=== PATIENT | male | born 1990 | race Caucasian/White ===

== ENCOUNTER 2017-03-11 15:59 | Emergency (ER) | payer OTHER ==
[2017-03-11 16:34] LABS: BASOPHILS # (AUTO) 0.1 10^3/uL (0.0-0.1); BASOPHILS % (AUTO) 0.6 %; EOSINOPHILS % (AUTO) 0.4 %; HCT - HEMATOCRIT 46.5 % (42.0-52.0); HGB - HEMOGLOBIN 16.3 g/dL (14.0-18.0); LYMPHOCYTES # (AUTO) 0.8 10^3/uL (1.5-3.5); LYMPHOCYTES % (AUTO) 7.8 %; MEAN CORPUSCULAR HGB CONC 35.1 g/dL (32.0-36.0); MEAN CORPUSCULAR VOLUME 82.8 fL (80.0-94.0); MEAN PLATELET VOLUME 7.8 fL (7.4-11.4); MONOCYTES # (AUTO) 0.9 10^3/uL (0.0-1.0); MONOCYTES % (AUTO) 8.4 %; NEUTROPHILS # (AUTO) 8.8 10^3/uL (1.5-6.6); NEUTROPHILS % (AUTO) 82.8 %; RED BLOOD COUNT 5.61 10^6/uL (4.70-6.10); RED CELL DISTRIBUTION WIDTH 12.8 % (12.0-15.0); UNCORRECTED WHITE BLOOD COUNT 10.7 x10^3/uL; WHITE BLOOD COUNT 10.7 x10^3/uL (4.8-10.8)
[2017-03-11 16:43] LABS: ALBUMIN/GLOBULIN RATIO 1.5 (1.0-2.2); BILIRUBIN,TOTAL 1.2 mg/dL (0.2-1.0); CALCIUM 9.3 mg/dL (8.5-10.3); POTASSIUM 4.2 mmol/L (3.5-5.0); TOTAL PROTEIN 7.4 g/dL (6.7-8.2)
[2017-03-11] MEDS ORDERED: SODIUM CHLORIDE 0.9% 1,000 ML IV ONE (17:26)
[2017-03-11] MEDS ORDERED: KETOROLAC 60 MG/2 ML VIAL IVP STA (17:26)
[2017-03-11] MEDS ORDERED: ONDANSETRON 4 MG/2 ML VIAL IVP STA (17:26)
--- NOTE | 2017-03-11 17:27 | ED Physician Documentation ---
PD HPI ABD PAIN - Stated complaint Stated Complaint: N/V/D/F/BACK PX - Chief complaint Chief Complaint: Abd Pain - History obtained from History obtained from: Patient - History of Present Illness Timing - onset: Other (He has had 4 weeks of back pain after lifting, but today became chilled, started vomiting and he had diarrhea last night with some diffuse abdominal cramping as well. No sick contacts or recent travel.) Review of Systems Constitutional: reports: Fever, Chills, Myalgias, Fatigue Nose: denies: Rhinorrhea / runny nose, Congestion Cardiac: denies: Chest pain / pressure, Palpitations Respiratory: denies: Dyspnea, Cough GI: reports: Abdominal Pain, Nausea, Vomiting, Diarrhea : denies: Dysuria, Frequency PD PAST MEDICAL HISTORY - Past Medical History Past Medical History: No - Past Surgical History Past Surgical History: No - Present Medications Home Medications: Ambulatory Orders Medication Instructions Recorded Confirmed Cyclobenzaprine [Flexeril] 10 mg PO TID PRN #20 tablet 03/11/17 Ondansetron HCl [Zofran] 4 mg PO Q6H PRN #10 tablet 03/11/17 - Allergies Allergies/Adverse Reactions: Allergies Allergy/AdvReac Type Severity Reaction Status Date / Time amoxicillin Allergy Hives Verified 03/11/17 16:07 - Social History Does the pt smoke?: No Smoking Status: Never smoker Does the pt drink ETOH?: Yes Does the pt have substance abuse?: No - Family History Family history: reports: Non contributory - Immunizations Immunizations are current?: Yes - POLST Patient has POLST: No PD ED PE NORMAL - Vitals Vital signs reviewed: Yes - General General: Alert and oriented X 3, No acute distress - HEENT HEENT: PERRL, EOMI - Neck Neck: Supple, no meningeal sign, No bony TTP - Cardiac Cardiac: RRR, No murmur - Respiratory Respiratory: No respiratory distress, Clear bilaterally - Abdomen Abdomen: Normal bowel sounds, Soft, Non tender - Back Back: Other (He has some paralumbar muscular tenderness of the lumbar spine without midline tenderness.) - Derm Derm: Normal color, Warm and dry - Extremities Extremities: No edema, No calf tenderness / cord, Other (The patient has equal and normal Achilles and patellar reflexes bilaterally. Normal sensation in all areas of the legs. Patient denies saddle anesthesia. Normal strength in flexion-extension at the ankles, knees, and flexion of the hips.) - Neuro Neuro: Alert and oriented X 3, Normal speech - Psych Psych: Normal mood, Normal affect Results - Vitals Vitals: Vital Signs - 24 hr 03/11/17 16:04 Temperature 38 C H Heart Rate 114 H Respiratory 20 Rate Blood Pressure 149/86 H O2 Saturation 97 Oxygen O2 Source Room air - Labs Labs: Laboratory Tests 03/11/17 03/11/17 16:26 16:26 WBC 10.7 RBC 5.61 Hgb 16.3 Hct 46.5 MCV 82.8 MCH 29.0 MCHC 35.1 RDW 12.8 Plt Count 220 MPV 7.8 Neut # 8.8 H Lymph # 0.8 L [place] # 0.9 Eos # 0.0 Baso # 0.1 Absolute Nucleated RBC 0.00 Nucleated RBC % 0.0 Sodium 136 Potassium 4.2 Chloride 106 Carbon Dioxide 23 Anion Gap 7.0 BUN 15 Creatinine 1.0 Estimated GFR (MDRD) 91 Glucose 106 H Calcium 9.3 Total Bilirubin 1.2 H AST 28 ALT 47 Alkaline Phosphatase 74 Total Protein 7.4 Albumin 4.4 Globulin 3.0 Albumin/Globulin Ratio 1.5 Lipase 31 PD MEDICAL DECISION MAKING - ED course ED course: He has 2 seemingly unrelated issues, 4 weeks of back pain after lifting which seems uncomplicated without red flags but he does have a fever now, low-grade with what seems like a gastroenteritis but no tenderness. He was administered IV fluids, Toradol, Zofran with good relief of his back pain but it still felt stiff and his nausea and abdominal pain were gone. On repeat examination at 6: 25 PM he was completely nontender but he was given appendicitis precautions given the low-grade fever. Departure - Departure Disposition: 01 Home, Self Care Clinical Impression: Back sprain Abdominal pain Qualifiers: Abdominal location: generalized Qualified Code(s): R10.84 - Generalized abdominal pain Vomiting Qualifiers: Vomiting type: unspecified Vomiting Intractability: non-intractable Nausea presence: with nausea Qualified Code(s): R11.2 - Nausea with vomiting, unspecified Diarrhea Qualifiers: Diarrhea type: unspecified type Qualified Code(s): R19.7 - Diarrhea, unspecified Condition: Good Record reviewed to determine appropriate education?: Yes Instructions: Abdominal Pain, ED Low Back Pain Injury Prescriptions: Cyclobenzaprine [Flexeril] 10 mg PO TID PRN #20 tablet PRN Reason: Pain Ondansetron HCl [Zofran] 4 mg PO Q6H PRN #10 tablet PRN Reason: Nausea / Vomiting Comments: With regard to your abdominal symptoms, vomiting and abdominal pain and fevers, return in 12 hours if not better, anytime if worse. 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 Your blood pressure was elevated today on check into the emergency department. This does not mean that you have hypertension, it is a common phenomenon to come to the emergency department and have elevated blood pressure. I recommend that she see your primary care physician within the week to have it rechecked when you are feeling better.
[2017-03-11] MEDS ORDERED: KETOROLAC 30 MG/ML VIAL ONE (17:37)
[2017-03-11] MEDS ORDERED: ONDANSETRON 4 MG/2 ML VIAL ONE (17:37)
[2017-03-11] MEDS ORDERED: SODIUM CHLORIDE FLUSH 0.9% 10 ML SYRINGE IVP ONE (17:37)
[2017-03-11 18:55] VITALS: BP 112/68
== END 2017-03-11 18:55 | disposition home or self-care (01) ==
LOC: ED 15:59
DX: S39.012A Strain of muscle, fascia and tendon of lower back, initial encounter (principal); X50.9XXA Other and unspecified overexertion or strenuous movements or postures, initial encounter; R10.84 Generalized abdominal pain; R03.0 Elevated blood-pressure reading, without diagnosis of hypertension; R11.2 Nausea with vomiting, unspecified; R19.7 Diarrhea, unspecified
CPT/HCPCS: 36415; 80053; 83690; 85025; 96361; 96374; 96375; 99283; 99284